=== PATIENT | male | born 1960 | race Asian ===

== ENCOUNTER 2023-01-04 16:06 | Inpatient (IN) ==
[~2023-01-04 16:06] MED LIST: Amiodarone IV 150 mg/3 ml VIAL ONE; Atropine 0.1 MG/ML 10 ml SYR (1 mg) ONE; Naloxone 4 mg VIAL 0.4 MG/ML 10 ml VIAL (4 mg) ONE
[2023-01-04] MEDS ORDERED: Rocuronium 50 mg VIAL 10 mg/ml 5 ml VIAL (50 mg) ONE ×2 (16:09→16:14)
[2023-01-04] MEDS ORDERED: Succinylcholine 200 mg VIAL 20 mg/ml 10 ml VIAL (200 mg) ONE (16:09)
[2023-01-04] MEDS ORDERED: Etomidate 40 mg/20 ml (2 MG/ML) 20 ml VIAL (40 mg) ONE (16:14)
[2023-01-04] MEDS ORDERED: Heparin 5000 UNITS/ML 1 mL VIAL ONE (16:21)
[2023-01-04] MEDS ORDERED: Atropine 0.1 MG/ML 10 ml SYR (1 mg) ONE ×2 (16:22→16:56)
[2023-01-04] MEDS ORDERED: EPINEPHrine SYR 0.1MG/ML 10 ml SYRINGE IV ONE ×2 (16:22→17:40)
[2023-01-04] MEDS ORDERED: Norepinephrine IV 1 MG/ML 4 ML VIAL ONE ×2 (16:22→16:56)
[2023-01-04] MEDS ORDERED: Sodium Bicarbonate 8.4% SYR 50 ml SYRINGE ONE ×3 (16:22→17:40)
[2023-01-04] MEDS ORDERED: Amiodarone IV 150 mg/3 ml VIAL ONE (16:22)
[2023-01-04 16:29] LABS: ABS Eosinophils 0.1 10^3/uL (0.0-0.5); ABS Monocytes 0.5 10^3/uL (0.0-1.1); ABS Neutrophils 4.2 10^3/uL (1.5-7.6); ABS Nucleated RBC 0.01 10^3/ul; Eosinophil % 1.2 %; Hematocrit 44.6 % (38-53); Hemoglobin 14.7 g/dL (13.2-16.3); Lymphocyte % 44.9 %; Mean Corpuscular Hemoglobin 31.5 pg (27-33); Mean Corpuscular Hgb Conc 32.9 g/dL (31-36); Mean Corpuscular Volume 95.7 fL (80-97); Mean Platelet Volume 8.7 fL (7.5-11.2); Nucleated Red Blood Cells % 0.2 %/100WBC (0.0-0.8); Platelet Count 249 10^3/uL (150-450); Red Blood Count 4.66 10^6/uL (4.06-5.63); Red Cell Distribution Width 14.5 % (12-17); White Blood Count 8.9 10^3/uL (3.6-10.2)
[2023-01-04] MEDS ORDERED: Amiodarone 360 MG IVPREMIX 360 MG/200 ML BAG IV ONE (16:30)
[2023-01-04 16:41] LABS: Anion Gap 11 mmol/L (2-16); CO2 Carbon Dioxide 25 mmol/L (22-32); Calcium 8.8 mg/dL (8.6-10.3); Chloride 105 mmol/L (101-111); Magnesium 2.6 mg/dL (1.9-2.7); Potassium 3.4 mmol/L (3.5-5.0); Sodium 141 mmol/L (135-145)
[2023-01-04] MEDS ORDERED: Bivalirudin 250 MG VIAL ONE (16:46)
[2023-01-04] MEDS ORDERED: Midazolam 5 mg/5 ml VIAL 1 mg/ml 5 ml VIAL (5 mg) ONE (16:46)
[2023-01-04] MEDS ORDERED: Heparin 1,000 UNIT/ML 10 ml (10,000 UNITS) CATHLAB/DIALYSIS ONE (16:46)
[2023-01-04] MEDS ORDERED: fentaNYL 100 mcg/2 ml 50 MCG/ML VIAL ONE (16:46)
[2023-01-04] MEDS ORDERED: nitroGLYCERIN DRIP 25,000 MCG/250 ML BTL ONE (16:46)
[2023-01-04] MEDS ORDERED: VERAPAMIL 2.5 MG/ML 2 ML VIAL ** 5 mg/2 ml ONE (16:46)
[2023-01-04] MEDS ORDERED: Heparin 2 UNITS/ML 1000 mls 0 ML IV ONE (16:46)
[2023-01-04 16:47] LABS: ALT 43 U/L (7-52); AST 48 U/L (13-39); Albumin/Globulin Ratio 1.7 (1-3); Alkaline Phosphatase 53 U/L (35-149); Blood Urea Nitrogen 20 mg/dL (6-24); C Reactive Protein < 1.00 mg/L (<8.01); Globulin 2.4 g/dL (2-4); Glucose 252 mg/dL (70-100); Total Protein 6.4 g/dL (6.4-8.9); eGFR CKD-EPI 68.4 (>60)
[2023-01-04] MEDS ORDERED: Iohexol 350 (CONTRAST) 200 ML MDV IV ONE (16:47)
[2023-01-04] MEDS ORDERED: Lidocaine 1% MPF 5 ML VIAL ONE (16:47)
[2023-01-04 16:52] LABS: High Sens Troponin Baseline 18 pg/mL (<20)
[2023-01-04] MEDS ORDERED: Heparin 2 UNITS/ML 1000 mls 2,000 ML IV ONE (17:02)
[2023-01-04 17:18] LABS: Activated Partial Thrombo Time 40.8 seconds (26.0-38.0); INR 1.43 (0.83-1.13)
[2023-01-04 17:57] VITALS: BP 60/40
== END 2023-01-04 17:54 | disposition expired | DRG 196 ==
LOC: ED 16:06 → EDHOLD 17:00 → CHICATH 17:13 → CHICARD 17:13